=== PATIENT | male | born 1960 | race Caucasian/White ===

== ENCOUNTER 2023-12-23 12:57 | Outpatient (CLI) | payer MEDICARE, MEDICAID, SELFPAY ==
--- NOTE | ~2023-12-23 | XR_ITS ---
XR abdomen/kub 1V Ordering provider: Raúl Head MD History: . KIDNEY STONE . Comparison: None. FINDINGS: BOWEL: Nonobstructive bowel gas pattern. ORGANOMEGALY: None. SIGNIFICANT PATHOLOGIC CALCIFICATIONS: Bilateral kidney stones with the largest measures 2.5 cm on th e right and 3 cm on the left. OTHER: No free air is seen under the diaphragm. Degenerative changes of the spine. Right sacroiliitis. Bilateral hip osteoarthritic changes. Barajas's catheter is seen in the area of the urinary bladder. IMPRESSION: Bilateral kidney stones. Reviewed, dictated and finalized at location A. IMPRESSION: Bilateral kidney stones.
--- NOTE | ~2023-12-23 | CT_ITS ---
Non-contrast CT scan of the Abdomen and Pelvis Clinical indication: Kidney stone Technique: 2.5 mm axial scans were obtained through the abdomen and pelvis without intravenous or or al contrast. Dose reduction technique was used on this scan by utilizing automated exposure control a nd iterative reconstruction technique. The dose-length product (DLP) was 1542.13 mGy-cm. Findings: Images through the lung bases reveal no abnormalities. There are 2 stones the left renal pelvis, larger measuring 1.6 x 1.1 cm, and the smaller measuring 1. 3 x 0.9 cm. There is an additional 1.3 cm nonobstructing stone in the left kidney. There are several additional smaller, subcentimeter left renal stones. There are also multiple right renal stones, incl uding stones in the right renal pelvis measuring up to 1.2 cm, and a larger developing probable stagh orn calculus measuring up to 2.7 cm. There are additional smaller right renal stones as well. There is an 8 mm stone in the distal right ureter (axial image 160). No definite right hydronephrosis . There are multiple stones in the distal left ureter, largest measuring approximately 8 mm in diamet er. No left hydronephrosis evident. The liver, spleen, pancreas, and adrenals appear normal. Gallbladder is contracted with small gallsto dipika present. There is no aortic aneurysm. There is no evidence of bowel obstruction. Right-sided double ostomy present. Images through the pelvis were performed. There is no evidence of ascites or lymphadenopathy. Suprapu bic catheter in place, with probable mild diffuse wall thickening of the urinary bladder and air with in the urinary bladder. No pelvic mass evident. Probable chronic T11 compression fracture. Impression: 8 mm distal right ureteral stone. No definite right hydronephrosis. Multiple stones at the distal left ureter, largest measuring 8 mm. No definite left hydronephrosis. Multiple additional bilateral large renal stones, with involvement of the bilateral renal pelves, as well as the bilateral intrarenal collecting systems. Suprapubic catheter and possible urinary bladder wall thickening. Correlate for cystitis. Cholelithiasis. Reviewed, dictated and finalized at location M. Impression: 8 mm distal right ureteral stone. No definite right hydronephrosis. Multiple stones at the distal left ureter, largest measuring 8 mm. No definite left hydronephrosis. Multiple additional bilateral large renal stones, with involvement of the bilat eral renal pelves, as well as the bilateral intrarenal collecting systems. Suprapubic catheter and possible urinary bladder wall thickening. Correlate for cystitis. Cholelithiasis.
== END 2023-12-23 12:58 | disposition home or self-care (01) ==
LOC: ANHIMG 13:08
PROVIDERS: PCP Family Medicine; Visit Provider Urology
DX: N20.2 Calculus of kidney with calculus of ureter (principal); K80.20 Calculus of gallbladder without cholecystitis without obstruction
CPT/HCPCS: 74018; 74176